=== PATIENT | male | born 1990 | race Caucasian/White ===

== ENCOUNTER 2018-07-21 13:25 | Emergency (ER) | payer BC ==
[2018-07-21] MEDS: NS 1,000 ML IV (14:17)
[2018-07-21 14:37] LABS: BASO % 0.4 % (0.0-1.0); EOS # 0.6 10^3/uL (0.0-0.50); EOS % 5.6 % (0.0-3.0); HEMATOCRIT 46.8 % (42.0-52.0); HEMOGLOBIN 15.9 g/dl (13.5-17.5); IMMATURE GRANULOCYTE % 0.8 % (0-3.0); INR 0.87; LYMPH # 2.1 10^3/uL (1.5-6.5); LYMPH % 21.2 % (24.0-44.0); MEAN CORPUSCULAR HEMOGLOBIN 30.3 pg (27.0-33.0); MEAN CORPUSCULAR VOLUME 89.3 fl (80.0-96.0); MONO # 0.8 10^3/uL (0.0-0.8); MONO % 7.8 % (0.0-5.0); NEUTROPHILS # 6.5 10^3/uL (1.8-7.7); NEUTROPHILS % 64.2 % (36.0-66.0); PLATELET COUNT, AUTOMATED 271 10^3/uL (150-450); PROTHROMBIN TIME 11.9 SECONDS (12.1-14.4); RED BLOOD COUNT 5.24 10^6/uL (4.30-6.10); RED CELL DISTRIBUTION WIDTH 11.7 % (11.5-14.5); WHITE BLOOD COUNT 10.1 10^3/uL (4.0-10.0)
[2018-07-21 14:38] LABS: PARTIAL THROMBOPLASTIN TIME 33.2 SECONDS (25.4-37.6)
[2018-07-21 14:49] LABS: ANION GAP 6 MEQ/L (8-16); BLOOD UREA NITROGEN 16 MG/DL (7-18); CALCIUM LEVEL 9.1 MG/DL (8.5-10.1); CARBON DIOXIDE LEVEL 32 MEQ/L (21-32); CHLORIDE LEVEL 105 MEQ/L (98-107); CREATININE FOR GFR 1.02 MG/DL (0.70-1.30); GLOMERULAR FILTRATION RATE > 60.0 (>60); GLUCOSE, FASTING 93 MG/DL (70-100); POTASSIUM SERUM 4.6 MEQ/L (3.5-5.1); SODIUM LEVEL 143 MEQ/L (136-145)
[2018-07-21] MEDS: MORPHINE 2 MG/ML 1ML SYRINGE (J2270) IV (15:39)
== END 2018-07-21 16:43 | disposition home or self-care (01) ==
LOC: M ED 13:25
DX: G43.909 Migraine, unspecified, not intractable, without status migrainosus (principal); I10 Essential (primary) hypertension; F17.210 Nicotine dependence, cigarettes, uncomplicated
CPT/HCPCS: J2270

== ENCOUNTER → 2018-09-30 | Outpatient (CLI) | payer BC, OTHER ==
[~2018-09-30] MED LIST: IBUP-1022 PO
--- NOTE | 2018-09-30 12:48 | REP ---
LEFT FINGERS, FIVE VIEWS: HISTORY: Laceration. There is a comminuted fracture of the tuft of the distal phalange of the 4th digit. There is no dislocation. The joint spaces are normal in appearance. A defect is present in the soft tissue consistent with a laceration. IMPRESSION: Comminuted fracture of the tuft of the distal phalange of the 4th digit. Electronically Signed by Reginaldo Song MD 09/30/2018 12:50 P
== END ==
LOC: M LRY 11:58
PROVIDERS: ATTEND Physician Assistant Medical
DX: S62.635A Displaced fracture of distal phalanx of left ring finger, initial encounter for closed fracture (principal); X58.XXXA Exposure to other specified factors, initial encounter; Y92.89 Other specified places as the place of occurrence of the external cause

== ENCOUNTER 2020-12-13 10:21 | Emergency (ER) | payer BC, OTHER, SELFPAY ==
[~2020-12-13] VITALS: Ht 185.4 cm; Wt 109.1 kg
[2020-12-13] MEDS ORDERED: HYDR-3490 (10:31)
[2020-12-13] MEDS ORDERED: PEPC1TAB5 (10:31)
[2020-12-13] MEDS ORDERED: BUPR15TASR (10:31)
[2020-12-13] MEDS ORDERED: ZOFR4TAB16 (10:31)
[2020-12-13] MEDS ORDERED: NS 1,000 ML IV ONE (11:05)
[2020-12-13] MEDS ORDERED: HALOPERIDOL 5MG/ML VIAL (J1630 PER 1) IV ONE (11:05)
[2020-12-13] MEDS ORDERED: PANTOPRAZOLE 40MG VIAL (C9113 PER 1) IV ONE (11:10)
[2020-12-13 11:29] LABS: BASO # 0.1 10^3/uL (0.0-0.2); BASO % 0.5 % (0.0-1.0); EOS # 0.4 10^3/uL (0.0-0.5); EOS % 2.7 % (0.0-3.0); HEMOGLOBIN 15.7 g/dl (13.5-17.5); LYMPH # 1.5 10^3/uL (1.5-5.0); LYMPH % 11.3 % (24.0-44.0); MEAN CORPUSCULAR HEMOGLOBIN 29.7 pg (27.0-33.0); MEAN CORPUSCULAR HGB CONC 34.1 g/dl (32.0-36.5); MONO # 0.7 10^3/uL (0.0-0.8); MONO % 5.4 % (2.0-8.0); NEUTROPHILS # 10.6 10^3/uL (1.5-8.5); NEUTROPHILS % 79.5 % (36.0-66.0); PLATELET COUNT, AUTOMATED 372 10^3/uL (150-450); RED BLOOD COUNT 5.29 10^6/uL (4.30-6.10); WHITE BLOOD COUNT 13.3 10^3/uL (4.0-10.0)
[2020-12-13 11:54] LABS: ALBUMIN 4.4 GM/DL (3.2-5.2); ALT/SGPT 27 U/L (12-78); BILIRUBIN,DIRECT 0.2 MG/DL (0.0-0.2); BILIRUBIN,TOTAL 0.9 MG/DL (0.2-1.0); BLOOD UREA NITROGEN 8 MG/DL (7-18); CALCIUM LEVEL 9.9 MG/DL (8.5-10.1); CARBON DIOXIDE LEVEL 28 MEQ/L (21-32); CHLORIDE LEVEL 105 MEQ/L (98-107); CREATININE FOR GFR 0.92 MG/DL (0.70-1.30); GLOMERULAR FILTRATION RATE > 60.0 (>60); GLUCOSE, FASTING 112 MG/DL (70-100); LIPASE 140 U/L (73-393); POTASSIUM SERUM 3.9 MEQ/L (3.5-5.1); SODIUM LEVEL 138 MEQ/L (136-145); TOTAL PROTEIN 7.4 GM/DL (6.4-8.2)
[2020-12-13] MEDS ORDERED: PROM25TA12 PO (12:15)
[2020-12-13] MEDS ORDERED: PROT1TAB2 PO (12:15)
[2020-12-13 12:19] VITALS: BP 159/89
== END 2020-12-13 12:36 | disposition home or self-care (01) ==
LOC: M ED 10:21
DX: F12.288 Cannabis dependence with other cannabis-induced disorder (principal); K29.70 Gastritis, unspecified, without bleeding; F90.9 Attention-deficit hyperactivity disorder, unspecified type; Z79.899 Other long term (current) drug therapy
CPT/HCPCS: 80048; 80076; 83690; 85025; 96361; 96374; 96375; 99284; C9113; J1630

== ENCOUNTER 2021-02-10 11:27 | Emergency (ER) | payer OTHER ==
[~2021-02-10] VITALS: Ht 154.9 cm; Wt 104.5 kg
[~2021-02-10 11:27] MED LIST changes: +BUPR15TASR; +HYDR-3490; +PEPC1TAB5; +PROM25TA12 PO; +PROT1TAB2 PO; +ZOFR4TAB16
[2021-02-10] MEDS ORDERED: LOSA25TA14 (11:35)
[2021-02-10] MEDS ORDERED: SERT25TA21 (11:35)
--- NOTE | 2021-02-10 12:38 | REP ---
INDICATION: sweling and bruise. COMPARISON: None TECHNIQUE: Two views FINDINGS: There is no evidence of an acute fracture or destructive osseous lesion IMPRESSION: Negative exam <Electronically signed by William Mace > 02/10/21 1230
[2021-02-10] MEDS ORDERED: PERCOCET 5MG/325MG TAB PO ONE (12:55)
[2021-02-10] MEDS ORDERED: ONDANSETRON 4MG/2ML VIAL IV ONE (13:00)
[2021-02-10] MEDS ORDERED: NS 1,000 ML IV ONE (13:00)
[2021-02-10 13:33] LABS: BASO % 0.1 % (0.0-1.0); EOS # 0.2 10^3/uL (0.0-0.5); EOS % 1.2 % (0.0-3.0); HEMATOCRIT 30.1 % (42.0-52.0); HEMOGLOBIN 10.2 g/dl (13.5-17.5); LYMPH # 1.8 10^3/uL (1.5-5.0); LYMPH % 12.7 % (24.0-44.0); MEAN CORPUSCULAR HEMOGLOBIN 30.2 pg (27.0-33.0); MEAN CORPUSCULAR HGB CONC 33.9 g/dl (32.0-36.5); MEAN CORPUSCULAR VOLUME 89.1 fl (80.0-96.0); MONO # 1.8 10^3/uL (0.0-0.8); MONO % 12.8 % (2.0-8.0); NEUTROPHILS # 10.4 10^3/uL (1.5-8.5); NEUTROPHILS % 72.6 % (36.0-66.0); PLATELET COUNT, AUTOMATED 324 10^3/uL (150-450); RED BLOOD COUNT 3.38 10^6/uL (4.30-6.10)
--- NOTE | 2021-02-10 13:47 | REP ---
INDICATION: trauma COMPARISON: None TECHNIQUE: Five views FINDINGS: The compartments are symmetric and well maintained. There is no acute fracture or destructive osseous lesion. IMPRESSION: Within normal limits <Electronically signed by William Mace > 02/10/21 [id number]
[2021-02-10 13:59] LABS: WHITE BLOOD COUNT 14.4 10^3/uL (4.0-10.0)
--- NOTE | 2021-02-10 14:12 | REP ---
INDICATION: trauma COMPARISON: None. TECHNIQUE: Collins scale and color Doppler evaluation right lower extremity using linear high frequency transducer. FINDINGS: Ultrasound examination of the right lower extremity deep venous structures from the common femoral vein to the popliteal vein demonstrates normal compressibility flow and wave patterns in response to respiration and augmentation. There is no evidence for deep venous thrombosis. IMPRESSION: No evidence for deep venous thrombosis. <Electronically signed by Elias Hdez > 02/10/21 [id number]
--- NOTE | 2021-02-10 14:15 | REP ---
INDICATION: trauma COMPARISON: None TECHNIQUE: Real time B-mode ultrasound examination using curved array transducer FINDINGS: At the site of swelling and bruising over the right thigh there is a complex intramuscular collection measuring 11.9 x 4.8 x 3.1 cm which may represent hematoma given the patient's history of trauma. IMPRESSION: Findings suggest small intramuscular hematoma related to recent trauma. <Electronically signed by Elias Hdez > 02/10/21 1417
[2021-02-10] MEDS ORDERED: PERC5TAB12 PO (14:50)
[2021-02-10 15:05] VITALS: BP 126/69
== END 2021-02-10 15:24 | disposition home or self-care (01) ==
LOC: M ED 11:27
DX: S70.11XA Contusion of right thigh, initial encounter (principal); M25.461 Effusion, right knee; F17.200 Nicotine dependence, unspecified, uncomplicated; F12.10 Cannabis abuse, uncomplicated; Z79.899 Other long term (current) drug therapy; Y92.9 Unspecified place or not applicable; Y93.9 Activity, unspecified; Y99.9 Unspecified external cause status
CPT/HCPCS: 73552; 73564; 76882; 80047; 85025; 93971; 96361; 96374; 99284; J2405

== ENCOUNTER → 2021-03-11 | Outpatient (CLI) | payer OTHER ==
[~2021-03-11] MED LIST changes: +LOSA25TA14; +PERC5TAB12 PO; +SERT25TA21
--- NOTE | 2021-03-12 08:16 | REP ---
INDICATION: UNSP TEAR OF MENISCUS, CURRENT INJURY, LEFT KNEE. COMPARISON: None. TECHNIQUE: AP weightbearing, AP, lateral, bilateral oblique and sunrise views of the left knee FINDINGS: Minimally increased sclerosis along the tibial plateaus appreciated with trace medial joint space narrowing. Examination is otherwise age-appropriate and normal. No further degenerative changes are appreciated. No evidence for acute fracture or dislocation. No definite effusion. IMPRESSION: Minimal changes as described above. <Electronically signed by Elias Hdez > 03/12/21 [id number]
== END ==
LOC: M SOG 10:44
PROVIDERS: ATTEND Orthopaedic Surgery Sports Medicine
DX: S83.207A Unspecified tear of unspecified meniscus, current injury, left knee, initial encounter (principal); X58.XXXA Exposure to other specified factors, initial encounter; Y92.9 Unspecified place or not applicable

== ENCOUNTER → 2021-03-26 | Outpatient (CLI) | payer OTHER ==
--- NOTE | 2021-03-26 12:00 | REP ---
INDICATION: L KNEE PAIN. COMPARISON: None. TECHNIQUE: Sagittal spin-echo proton density, T2 STIR and T2 FLASH. Coronal spin-echo proton density and fat suppressed proton density. Axial fat suppressed proton density. FINDINGS: Abnormal grade 3 signal change is seen in the posterior periphery of the posterior horn of the medial meniscus. The anterior horn is within normal limits. The anterior and posterior horns of the lateral meniscus are within normal limits. The anterior and posterior cruciate ligaments are intact. The quadriceps and patellar tendons are intact. T2 hyper signal is seen surrounding an intact medial collateral ligament. The lateral collateral ligament is intact. The medial and lateral patellar retinacula are intact. Mild blistering is seen involving the articular cartilaginous surface of the medial femoral condyle. The remainder of the articular cartilages are within normal limits. There is a small complex fluid collection seen between the tendons of the medial head of the gastrocnemius muscle and the semimembranosus muscle. Additionally, there is a larger but partially imaged complex fluid collection in the posterior compartment laterally and medially. This measures at least 5 cm in its greatest dimension. Mild patchy T2 hyper signal is seen in the proximal medial tibial metaphysis. There is no barbara joint effusion. IMPRESSION: 1. The posterior horn of the medial meniscus is torn. 2. The medial collateral ligament is sprained. 3. There is mild tibial marrow edema as described above. 4. 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 5. There is a small Rico cyst. 6. There is a complex fluid collection in the posterior compartment, as described above, possibly representing sequelae of muscular strain or partial tear. 7. Other findings as described above. <Electronically signed by William Mace > 03/26/21 [id number]
== END ==
LOC: M PLAIMG 11:06
PROVIDERS: ATTEND Orthopaedic Surgery Sports Medicine
DX: S83.207A Unspecified tear of unspecified meniscus, current injury, left knee, initial encounter (principal); X58.XXXA Exposure to other specified factors, initial encounter; Y92.89 Other specified places as the place of occurrence of the external cause; Y93.9 Activity, unspecified; Y99.9 Unspecified external cause status

== ENCOUNTER 2022-12-11 08:59 | Emergency (ER) | payer OTHER ==
[~2022-12-11] VITALS: Ht 185.4 cm; Wt 91.2 kg
[~2022-12-11 08:59] MED LIST changes: +LOSA25TA13; -LOSA25TA14
[2022-12-11 10:02] LABS: BASO % 0.3 % (0.0-1.0); EOS # 0.1 10^3/uL (0.0-0.5); EOS % 1.1 % (0.0-3.0); HEMATOCRIT 52.2 % (42.0-52.0); LYMPH # 2.4 10^3/uL (1.5-5.0); LYMPH % 19.3 % (24.0-44.0); MEAN CORPUSCULAR HGB CONC 34.5 g/dl (32.0-36.5); MONO # 1.1 10^3/uL (0.0-0.8); MONO % 9.1 % (2.0-8.0); NEUTROPHILS # 8.5 10^3/uL (1.5-8.5); NEUTROPHILS % 69.6 % (36.0-66.0); PLATELET COUNT, AUTOMATED 398 10^3/uL (150-450); WHITE BLOOD COUNT 12.2 10^3/uL (4.0-10.0)
[2022-12-11 10:24] LABS: CK-MB VALUE MASS < 1.0 NG/ML (<3.6); LIPASE 70 U/L (12-53)
[2022-12-11 10:26] LABS: ALBUMIN 4.7 G/DL (3.2-5.2); ALKALINE PHOSPHATASE 53 U/L (46-116); ALT/SGPT 30 U/L (7.0-40); AMYLASE 82 U/L (30-118); AST/SGOT 22 U/L (<34); BILIRUBIN,DIRECT 0.5 MG/DL (<0.4); BILIRUBIN,TOTAL 1.6 MG/DL (0.3-1.2); BLOOD UREA NITROGEN 16 MG/DL (9-23); CALCIUM LEVEL 9.9 MG/DL (8.5-10.1); CARBON DIOXIDE LEVEL 29 MMOL/L (20-31); CHLORIDE LEVEL 96 MMOL/L (98-107); CREATININE FOR GFR 0.97 MG/DL (0.70-1.30); GLOMERULAR FILTRATION RATE > 60.0 (>60); GLUCOSE, FASTING 100 MG/DL (60-100); POTASSIUM SERUM 3.9 MMOL/L (3.5-5.1); SODIUM LEVEL 135 MMOL/L (136-145); TOTAL PROTEIN 7.7 G/DL (5.7-8.2)
[2022-12-11 10:31] LABS: CPK CREATINE PHOSPHOKINASE 67 U/L (46-171); MB/CK RELATIVE INDEX 1.49 (< OR =4)
[2022-12-11] MEDS ORDERED: NS 2,740 ML in IV 1 EA IV ONE (11:05)
[2022-12-11] MEDS ORDERED: HALOPERIDOL 5MG/ML 1ML VIAL IV ONE (11:05)
[2022-12-11] MEDS ORDERED: ONDA4TAB6 PO (13:34)
[2022-12-11 15:34] VITALS: BP 174/93
== END 2022-12-11 15:46 | disposition home or self-care (01) ==
LOC: M ED 08:59
DX: F12.188 Cannabis abuse with other cannabis-induced disorder (principal); R00.1 Bradycardia, unspecified; F17.200 Nicotine dependence, unspecified, uncomplicated; Z79.810 Long term (current) use of selective estrogen receptor modulators (SERMs); Z79.83 Long term (current) use of bisphosphonates; Z79.899 Other long term (current) drug therapy
CPT/HCPCS: 71045; 80048; 80076; 82150; 82550; 82553; 83690; 85025; 93005; 93041; 96361; 96374; 99285; J1630